=== PATIENT | female | born 1965 | race Caucasian/White ===

== ENCOUNTER 2016-10-18 09:52 | Emergency (ER) | payer OTHER ==
[2016-10-18 09:33] LABS: BASOPHIL 0.3 % (0-2); EOSINOPHIL 1.4 % (0-5); HGB 13.3 g/dl (12.5-16.0); LYMPHOCYTE 30.5 % (15-48); MCH 30.6 pg (25.0-31.0); MCHC 32.4 g/dL (32.0-36.0); MCV 94.3 fL (78.0-100.0); MONOCYTE 8.6 % (0-12); MPV 8.8 fL (6.0-9.5); NEUTROPHIL 59.2 % (41-80); PLT 353 K/uL (150-400); RBC 4.35 M/uL (4.20-5.40); RDW 13.2 % (11.5-14.0); WBC 6.4 K/uL (4.0-10.5)
[2016-10-18 09:52] LABS: INR 0.91 (0.9-1.2); PROTHROMBIN TIME 11.9 SECONDS (11.7-14.0); PTT 24.9 SECONDS (23.2-31.4)
[2016-10-18 10:40] LABS: MYOGLOBIN 21 ng/mL (26-65)
[2016-10-18 10:41] LABS: ALBUMIN 4.3 g/dL (3.5-5.0); BILIRUBIN - TOTAL 0.5 mg/dL (0.1-1.0); CREATININE 0.9 mg/dL (0.5-1.0); GLOBULIN (CALCULATION) 2.7 g/dL (2.2-4.2); MAGNESIUM 2.13 mg/dL (1.40-2.10); POTASSIUM 4.4 mmol/L (3.5-5.1)
[2016-10-18 13:35] LABS: CKMB 1.13 ng/mL (0.97-4.94); PRO-BNP 128 pg/mL (0-125); TROPONIN T < 0.010 ng/mL
== END 2016-10-18 13:39 | disposition home or self-care (01) ==
LOC: FER 09:52
PROVIDERS: Internal Medicine
DX: R07.89 Other chest pain (principal); J44.9 Chronic obstructive pulmonary disease, unspecified; F41.9 Anxiety disorder, unspecified; F32.9 Major depressive disorder, single episode, unspecified; F17.210 Nicotine dependence, cigarettes, uncomplicated; Z88.2 Allergy status to sulfonamides
CPT/HCPCS: 36415; 71010; 80053; 82550; 82553; 83735; 83874; 83880; 84484; 85025; 85379; 85610; 85730; 93005